=== PATIENT | female | born 1975 | race Caucasian/White ===

== ENCOUNTER → 2016-12-13 | Outpatient (CLI) | payer OTHER, MEDICARE, MEDICAID ==
[~2016-12-13] MED LIST: ABILIFY20 MG PO; ALBUTEROL0.09 MG/A2 IH; ANAPROX DS550 MG PO; ATENOLOL25 MG PO; AUGMENTIN 875 M1 TAB PO; BACTRIM DS 8001 TA1 PO; BYETTA10 MCG/0.0 SC; CLARITIN10 MG PO; DIABETA5 MG PO; FLEXERIL5 MG PO; GLYBURIDE5 MG PO; IBU-8800 MG PO; IBU800 M1 PO; IMITREX25 MG PO; JANUVIA100 MG PO; KEFLEX500 MG PO; LAMICTAL25 MG PO; LATU60TA PO; LATUDA PO; LISINOPRIL10 M1 PO; LISINOPRIL10 MG PO; LURASIDONE 40 MG; MEDROL DOSEPAK4 MG PO; METFORMIN1000 MG PO; MOTRIN800 MG PO; PEN-VK500 MG PO; PERCOCET 325 MG1 TA2 PO; PHENERGAN PO; PROCARDIA10 MG PO; ROBAXIN500 MG PO; TRAMADOL HCL50 MG PO; TRAZADONE HYDR100 MG PO; ULTRAM50 MG PO; VICO75300 PO; VICODIN 5/500 505 MG PO; VICODIN ES 7501 TA1 PO; VITAMIN D2000 IU PO; ZITHROMAX Z PA250 MG PO; ZITHROMAX250 MG PO; ZOCOR20 MG PO; Zofran4 MG PO; [UNRECOGNIZED DRUG - OTHER] PO
[2016-12-13 08:25] LABS: BILIRUBIN NEGATIVE (NEGATIVE); BLOOD TRACE-INTACT (NEGATIVE); CLARITY CLEAR (CLEAR); COLOR YELLOW (YELLOW); GLUCOSE 2+ (NEGATIVE); KETONE NEGATIVE (NEGATIVE); LEUKO ESTERASE NEGATIVE (NEGATIVE); NITRITE NEGATIVE (NEGATIVE); PH 5.5 (5.0-9.0); SPECIFIC GRAVITY >= 1.030 (1.005-1.030); UROBILINOGEN 0.2 E.U./dl (0.2-1.0)
[2016-12-13 09:04] LABS: ALBUMIN 3.1 gm/dl (3.1-4.5); ALKALINE PHOSPHATASE 105 U/L (45-117); BILIRUBIN, DIRECT < 0.1 mg/dL (0.0-0.2); BUN 12 mg/dl (7-24); CHLORIDE 102 mmol/L (98-107); CHOLESTEROL 173 mg/dL (<200); CREATININE 0.61 mg/dL (0.55-1.02); FREE T4 0.89 ng/dl (0.76-1.46); HDL CHOLESTEROL 38 mg/dl (40-60); LDL CHOLESTEROL 106 mg/dL (9-159); POTASSIUM 3.9 mmol/L (3.5-5.1); SGOT/AST 10 IU/L (3-35); SGPT/ALT 26 U/L (12-78); SODIUM 137 mmol/L (136-145); TOTAL PROTEIN 7.8 gm/dL (6.4-8.2); TRIGLYCERIDES 143 mg/dl (<150); VLDL CHOLESTEROL 29 mg/dL (6-40)
[2016-12-13 09:57] LABS: BACTERIA 1+
[2016-12-13 09:58] LABS: MUCOUS 1+; YEAST 1+
[2016-12-13 10:30] LABS: VITAMIN D, 25-HYDROXY 23.9 ng/mL (30-100)
== END | disposition home or self-care (01) ==
LOC: LAB 07:58
PROVIDERS: Internal Medicine
DX: E11.65 Type 2 diabetes mellitus with hyperglycemia (principal); G62.9 Polyneuropathy, unspecified; E55.9 Vitamin D deficiency, unspecified; E78.5 Hyperlipidemia, unspecified; E04.9 Nontoxic goiter, unspecified

== ENCOUNTER → 2017-01-02 | Outpatient (CLI) | payer OTHER, MEDICARE, MEDICAID ==
[2017-01-02 09:53] LABS: ALKALINE PHOSPHATASE 97 U/L (45-117); BILIRUBIN, DIRECT 0.1 mg/dL (0.0-0.2); BUN 11 mg/dl (7-24); CHLORIDE 102 mmol/L (98-107); CHOLESTEROL 178 mg/dL (<200); FREE T4 0.95 ng/dl (0.76-1.46); HDL CHOLESTEROL 46 mg/dl (40-60); LDL CHOLESTEROL 102 mg/dL (9-159); SGOT/AST 9 IU/L (3-35); SGPT/ALT 25 U/L (12-78); SODIUM 137 mmol/L (136-145); TOTAL PROTEIN 7.6 gm/dL (6.4-8.2); TRIGLYCERIDES 148 mg/dl (<150); VLDL CHOLESTEROL 30 mg/dL (6-40)
[2017-01-02 09:58] LABS: THYROID STIM HORMONE (HS) 0.988 uIU/ml (0.358-4.75)
[2017-01-02 10:12] LABS: VITAMIN D, 25-HYDROXY 20.1 ng/mL (30-100)
[2017-01-02 13:36] LABS: BILIRUBIN NEGATIVE (NEGATIVE); BLOOD NEGATIVE (NEGATIVE); CLARITY CLEAR (CLEAR); COLOR YELLOW (YELLOW); GLUCOSE 3+ (NEGATIVE); KETONE NEGATIVE (NEGATIVE); LEUKO ESTERASE NEGATIVE (NEGATIVE); NITRITE NEGATIVE (NEGATIVE); PH 5.5 (5.0-9.0); SPECIFIC GRAVITY 1.015 (1.005-1.030); UROBILINOGEN 0.2 E.U./dl (0.2-1.0)
[2017-01-02 13:54] LABS: BACTERIA 1+; WBC 0-2 wbc/hpf (0-5)
== END | disposition home or self-care (01) ==
LOC: LAB 08:46
PROVIDERS: Internal Medicine
DX: E11.65 Type 2 diabetes mellitus with hyperglycemia (principal); E55.9 Vitamin D deficiency, unspecified; E04.9 Nontoxic goiter, unspecified; E78.5 Hyperlipidemia, unspecified; G62.9 Polyneuropathy, unspecified

== ENCOUNTER → 2017-02-07 | Outpatient (CLI) | payer OTHER, MEDICARE, MEDICAID | END | disposition home or self-care (01) | LOC: MRI 12:24 | DX: M48.061 Spinal stenosis, lumbar region without neurogenic claudication (principal); M47.896 Other spondylosis, lumbar region ==

== ENCOUNTER → 2017-05-07 | Outpatient (CLI) | payer OTHER, MEDICARE, MEDICAID ==
[2017-05-07 08:17] LABS: BILIRUBIN NEGATIVE (NEGATIVE); BLOOD NEGATIVE (NEGATIVE); CLARITY CLEAR (CLEAR); COLOR YELLOW (YELLOW); GLUCOSE 3+ (NEGATIVE); KETONE NEGATIVE (NEGATIVE); LEUKO ESTERASE NEGATIVE (NEGATIVE); NITRITE NEGATIVE (NEGATIVE); SPECIFIC GRAVITY 1.025 (1.005-1.030); UROBILINOGEN 0.2 E.U./dl (0.2-1.0)
[2017-05-07 08:41] LABS: ALBUMIN 3.1 gm/dl (3.1-4.5); ALKALINE PHOSPHATASE 76 U/L (45-117); BILIRUBIN, DIRECT < 0.1 mg/dL (0.0-0.2); BUN 16 mg/dl (7-24); CHLORIDE 103 mmol/L (98-107); CHOLESTEROL 162 mg/dL (<200); HDL CHOLESTEROL 37 mg/dl (40-60); LDL CHOLESTEROL 76 mg/dL (9-159); POTASSIUM 3.9 mmol/L (3.5-5.1); SGOT/AST 12 IU/L (3-35); SGPT/ALT 27 U/L (12-78); SODIUM 142 mmol/L (136-145); TOTAL PROTEIN 7.3 gm/dL (6.4-8.2); TRIGLYCERIDES 245 mg/dl (<150); VLDL CHOLESTEROL 49 mg/dL (6-40)
[2017-05-07 08:46] LABS: BACTERIA 2+; MUCOUS 2+; YEAST 2+
== END | disposition home or self-care (01) ==
LOC: LAB 07:55
PROVIDERS: Internal Medicine
DX: E11.65 Type 2 diabetes mellitus with hyperglycemia (principal); E78.5 Hyperlipidemia, unspecified; E55.9 Vitamin D deficiency, unspecified

== ENCOUNTER 2017-08-05 17:25 | Inpatient (IN) | payer OTHER, MEDICARE, MEDICAID ==
[~2017-08-05] VITALS: Ht 162.5 cm; Wt 116.6 kg
[2017-08-05 17:27] VITALS: BP 163/97
[2017-08-05 18:01] LABS: BASO % 0.3 % (0.0-1.0); EOS # 0.1 10*3/uL (0.0-0.4); EOS % 0.7 % (1.0-4.0); HEMATOCRIT 50.9 % (37.0-47.0); HEMOGLOBIN 17.2 g/dl (12.0-16.0); LYMPH # 1.4 10*3/uL (1.3-4.4); LYMPH % 13.7 % (27.0-41.0); MEAN CELL VOLUME 91.4 fl (81.0-99.0); MEAN CORPUSCULAR HGB 30.9 pg (27.0-31.0); MEAN CORPUSCULAR HGB CONC 33.8 g/dl (33.0-37.0); MEAN PLATELET VOLUME 9.2 fl (9.6-12.3); MONO # 0.6 10*3/uL (0.1-1.0); MONO % 5.7 % (3.0-9.0); NEUT % 78.9 % (47.0-73.0); PLATELET COUNT AUTOMATED 268 10*3/uL (130-400); RED BLOOD COUNT 5.57 10*6/uL (4.10-5.10); RED CELL DISTRI WIDTH 12.2 % (0-14.5); WHITE BLOOD COUNT 10.2 10*3/uL (4.8-10.8)
[2017-08-05 18:10] LABS: ACT PARTIAL THROMBO TIME 24.3 SECONDS (20.8-31.5)
[2017-08-05 18:18] LABS: ALBUMIN 3.1 gm/dl (3.1-4.5); ALKALINE PHOSPHATASE 84 U/L (45-117); BUN 18 mg/dl (7-24); CHLORIDE 103 mmol/L (98-107); CREATININE 0.75 mg/dL (0.55-1.02); POTASSIUM 3.5 mmol/L (3.5-5.1); SGOT/AST 11 IU/L (3-35); SGPT/ALT 23 U/L (12-78); SODIUM 135 mmol/L (136-145); TOTAL PROTEIN 7.6 gm/dL (6.4-8.2)
[2017-08-05 18:23] LABS: TROPONIN I < 0.015 ng/ml (<0.045)
[2017-08-05 18:30] VITALS: BP 160/95
[2017-08-05 19:34] LABS: BILIRUBIN NEGATIVE (NEGATIVE); BLOOD NEGATIVE (NEGATIVE); CLARITY SL CLOUDY (CLEAR); COLOR YELLOW (YELLOW); GLUCOSE 2+ (NEGATIVE); KETONE TRACE (NEGATIVE); LEUKO ESTERASE NEGATIVE (NEGATIVE); NITRITE NEGATIVE (NEGATIVE); PH 5.5 (5.0-9.0); SPECIFIC GRAVITY >= 1.030 (1.005-1.030); UROBILINOGEN 0.2 E.U./dl (0.2-1.0)
[2017-08-05 19:44] VITALS: BP 134/85
[2017-08-05 19:48] LABS: BACTERIA 1+; MUCOUS 1+; YEAST 1+
[2017-08-05 19:49] LABS: EPITHELIAL CELLS 21-30
[2017-08-05 21:21] VITALS: BP 129/69
[2017-08-05] MEDS ORDERED: METOPROLOL SUCC50 M2 PO (21:46)
[2017-08-05] MEDS ORDERED: AMLODIPINE BESY10 MG PO (21:47)
[2017-08-05] MEDS ORDERED: PRAVACHOL40 MG PO (21:47)
[2017-08-05] MEDS ORDERED: CYCLOBENZAPRINE5 M3 PO (21:48)
[2017-08-05] MEDS ORDERED: NOVOLOG100 UNIT/1 SQ (21:50)
[2017-08-05] MEDS ORDERED: ULTRAM50 MG PO (21:51)
[2017-08-05] MEDS ORDERED: TRAMADOL HCL50 MG PO (21:51)
[2017-08-05] MEDS ORDERED: CLARITIN10 MG PO (21:54)
[2017-08-05] MEDS ORDERED: PEPCID20 MG PO (21:54)
[2017-08-05] MEDS ORDERED: IBU800 M1 PO (21:55)
[2017-08-06] VITALS: BP 109/74
[2017-08-06 04:00] VITALS: BP 138/85
[2017-08-06 07:04] LABS: BASO % 0.1 % (0.0-1.0); LYMPH # 0.9 10*3/uL (1.3-4.4); LYMPH % 10.1 % (27.0-41.0); MEAN CELL VOLUME 91.5 fl (81.0-99.0); MEAN CORPUSCULAR HGB 30.6 pg (27.0-31.0); MEAN CORPUSCULAR HGB CONC 33.5 g/dl (33.0-37.0); MEAN PLATELET VOLUME 9.4 fl (9.6-12.3); MONO # 0.2 10*3/uL (0.1-1.0); MONO % 1.8 % (3.0-9.0); NEUT % 87.3 % (47.0-73.0); PLATELET COUNT AUTOMATED 253 10*3/uL (130-400); RED CELL DISTRI WIDTH 11.9 % (0-14.5); WHITE BLOOD COUNT 9.2 10*3/uL (4.8-10.8)
[2017-08-06 07:07] LABS: HEMOGLOBIN 14.4 g/dl (12.0-16.0)
[2017-08-06 07:35] LABS: ALBUMIN 2.7 gm/dl (3.1-4.5); BUN 13 mg/dl (7-24); CHLORIDE 105 mmol/L (98-107); CHOLESTEROL 132 mg/dL (<200); CREATININE 0.52 mg/dL (0.55-1.02); PHOSPHOROUS 3.2 mg/dL (2.5-4.9); POTASSIUM 3.9 mmol/L (3.5-5.1); SGOT/AST 9 IU/L (3-35); SGPT/ALT 18 U/L (12-78); SODIUM 139 mmol/L (136-145); TRIGLYCERIDES 90 mg/dl (<150); VLDL CHOLESTEROL 18 mg/dL (6-40)
[2017-08-06 07:42] LABS: ALKALINE PHOSPHATASE 69 U/L (45-117); FREE T4 1.14 ng/dl (0.76-1.46); HDL CHOLESTEROL 35 mg/dl (40-60); LDL CHOLESTEROL 79 mg/dL (9-159); THYROID STIM HORMONE (HS) 0.265 uIU/ml (0.358-4.75); TOTAL PROTEIN 6.5 gm/dL (6.4-8.2)
[2017-08-06 08:00] VITALS: BP 147/90
[2017-08-06 08:07] LABS: VITAMIN D, 25-HYDROXY 32.7 ng/mL (30-100)
[2017-08-06] MEDS ORDERED: NOVOLOG FL100 UNIT/1 SQ (09:32)
[2017-08-06] MEDS ORDERED: VITAMIN D5000 UNI1 PO (09:33)
[2017-08-06] MEDS ORDERED: DELTASONE20 M1 PO (09:34)
[2017-08-06] MEDS ORDERED: TRESIBA FL100 UNIT/1 SQ (09:35)
[2017-08-06] MEDS ORDERED: JARDIANCE25 MG PO (09:35)
[2017-08-06 12:00] VITALS: BP 128/72
[2017-08-06 16:00] VITALS: BP 149/71
[2017-08-06 20:00] VITALS: BP 116/68
[2017-08-07] VITALS: BP 139/89
[2017-08-07 05:41] LABS: BUN 15 mg/dl (7-24); CHLORIDE 105 mmol/L (98-107); CREATININE 0.53 mg/dL (0.55-1.02); POTASSIUM 4.3 mmol/L (3.5-5.1); SODIUM 137 mmol/L (136-145)
[2017-08-07 06:50] LABS: BASO % 0.1 % (0.0-1.0); HEMATOCRIT 41.6 % (37.0-47.0); HEMOGLOBIN 14.1 g/dl (12.0-16.0); LYMPH # 1.4 10*3/uL (1.3-4.4); LYMPH % 9.8 % (27.0-41.0); MEAN CELL VOLUME 91.4 fl (81.0-99.0); MEAN CORPUSCULAR HGB CONC 33.9 g/dl (33.0-37.0); MEAN PLATELET VOLUME 9.6 fl (9.6-12.3); MONO # 0.7 10*3/uL (0.1-1.0); MONO % 4.6 % (3.0-9.0); NEUT # 12.1 10*3/uL (2.3-7.9); NEUT % 84.7 % (47.0-73.0); PLATELET COUNT AUTOMATED 255 10*3/uL (130-400); RED BLOOD COUNT 4.55 10*6/uL (4.10-5.10); RED CELL DISTRI WIDTH 12.1 % (0-14.5); WHITE BLOOD COUNT 14.2 10*3/uL (4.8-10.8)
[2017-08-07 09:16] VITALS: BP 134/85
[2017-08-07] MEDS ORDERED: DUONEB 3 MG/3 ML3 M1 NEB (10:44)
[2017-08-07] MEDS ORDERED: MUCINEX ER600 MG PO (10:44)
[2017-08-07] MEDS ORDERED: DOXYCYCLINE100 M3 PO (10:45)
[2017-08-07] MEDS ORDERED: PREDNISONE10 MG PO (10:45)
== END 2017-08-07 12:59 | disposition home or self-care (01) | DRG 871 ==
LOC: ED 17:25 → 4E 20:12 → EDHOLD 20:12 → 4E 20:26
PROVIDERS: Family Medicine; Internal Medicine Hospice and Palliative Medicine; Nurse Practitioner Family
DX: A41.9 Sepsis, unspecified organism (principal); J18.9 Pneumonia, unspecified organism; D75.1 Secondary polycythemia; E83.51 Hypocalcemia; E11.65 Type 2 diabetes mellitus with hyperglycemia; E87.1 Hypo-osmolality and hyponatremia; I10 Essential (primary) hypertension; F31.9 Bipolar disorder, unspecified; E55.9 Vitamin D deficiency, unspecified; E78.1 Pure hyperglyceridemia; Z72.0 Tobacco use; Z88.8 Allergy status to other drugs, medicaments and biological substances; Z91.040 Latex allergy status; Z90.710 Acquired absence of both cervix and uterus

== ENCOUNTER → 2017-09-07 | Outpatient (CLI) | payer OTHER, MEDICARE, MEDICAID ==
[~2017-09-07] MED LIST changes: +AMLODIPINE BESY10 MG PO; +CYCLOBENZAPRINE5 M3 PO; +DELTASONE20 M1 PO; +DOXYCYCLINE100 M3 PO; +DUONEB 3 MG/3 ML3 M1 NEB; +JARDIANCE25 MG PO; +METOPROLOL SUCC50 M2 PO; +MUCINEX ER600 MG PO; +NOVOLOG FL100 UNIT/1 SQ; +NOVOLOG100 UNIT/1 SQ; +PEPCID20 MG PO; +PRAVACHOL40 MG PO; +PREDNISONE10 MG PO; +TRESIBA FL100 UNIT/1 SQ; +VITAMIN D5000 UNI1 PO
[2017-09-07 09:30] LABS: BILIRUBIN NEGATIVE (NEGATIVE); BLOOD NEGATIVE (NEGATIVE); CLARITY CLOUDY (CLEAR); COLOR YELLOW (YELLOW); GLUCOSE 3+ (NEGATIVE); KETONE TRACE (NEGATIVE); LEUKO ESTERASE NEGATIVE (NEGATIVE); NITRITE NEGATIVE (NEGATIVE); PH 5.5 (5.0-9.0); SPECIFIC GRAVITY >= 1.030 (1.005-1.030); UROBILINOGEN 0.2 E.U./dl (0.2-1.0)
[2017-09-07 09:56] LABS: ALBUMIN 3.3 gm/dl (3.1-4.5); ALKALINE PHOSPHATASE 98 U/L (45-117); BACTERIA 1+; BILIRUBIN, DIRECT < 0.1 mg/dL (0.0-0.2); BUN 14 mg/dl (7-24); CHLORIDE 107 mmol/L (98-107); CHOLESTEROL 143 mg/dL (<200); CREATININE 0.69 mg/dL (0.55-1.02); EPITHELIAL CELLS 15-20; FREE T4 0.99 ng/dl (0.76-1.46); HDL CHOLESTEROL 36 mg/dl (40-60); LDL CHOLESTEROL 72 mg/dL (9-159); MUCOUS 1+; POTASSIUM 3.8 mmol/L (3.5-5.1); SGOT/AST 12 IU/L (3-35); SGPT/ALT 24 U/L (12-78); SODIUM 140 mmol/L (136-145); TOTAL PROTEIN 7.4 gm/dL (6.4-8.2); TRIGLYCERIDES 174 mg/dl (<150); VLDL CHOLESTEROL 35 mg/dL (6-40); YEAST 2+
[2017-09-07 10:01] LABS: THYROID STIM HORMONE (HS) 0.696 uIU/ml (0.358-4.75)
== END | disposition home or self-care (01) ==
LOC: LAB 08:22
PROVIDERS: Internal Medicine
DX: E11.65 Type 2 diabetes mellitus with hyperglycemia (principal); E78.5 Hyperlipidemia, unspecified; E04.9 Nontoxic goiter, unspecified; E55.9 Vitamin D deficiency, unspecified

== ENCOUNTER → 2017-12-18 | Outpatient (CLI) | payer OTHER, MEDICARE, MEDICAID | END | disposition home or self-care (01) | LOC: MAMMO 06:54 | DX: Z12.31 Encounter for screening mammogram for malignant neoplasm of breast (principal); R92.8 Other abnormal and inconclusive findings on diagnostic imaging of breast ==

== ENCOUNTER → 2018-01-30 | Outpatient (CLI) | payer OTHER, MEDICARE, MEDICAID ==
[2018-01-30 11:19] LABS: BILIRUBIN NEGATIVE (NEGATIVE); BLOOD NEGATIVE (NEGATIVE); CLARITY SL CLOUDY (CLEAR); COLOR YELLOW (YELLOW); GLUCOSE 3+ (NEGATIVE); KETONE NEGATIVE (NEGATIVE); LEUKO ESTERASE NEGATIVE (NEGATIVE); NITRITE NEGATIVE (NEGATIVE); SPECIFIC GRAVITY <= 1.005 (1.005-1.030); UROBILINOGEN 0.2 E.U./dl (0.2-1.0)
[2018-01-30 11:37] LABS: BACTERIA 2+; WBC 0-2 wbc/hpf (0-5); YEAST 1+
[2018-01-30 11:40] LABS: BASO % 0.4 % (0.0-1.0); EOS # 0.1 10*3/uL (0.0-0.4); EOS % 1.3 % (1.0-4.0); HEMATOCRIT 45.3 % (37.0-47.0); HEMOGLOBIN 15.4 g/dl (12.0-16.0); LYMPH # 2.2 10*3/uL (1.3-4.4); LYMPH % 22.9 % (27.0-41.0); MEAN CELL VOLUME 90.2 fl (81.0-99.0); MEAN CORPUSCULAR HGB 30.7 pg (27.0-31.0); MEAN PLATELET VOLUME 9.5 fl (9.6-12.3); MONO # 0.5 10*3/uL (0.1-1.0); MONO % 5.1 % (3.0-9.0); NEUT # 6.8 10*3/uL (2.3-7.9); NEUT % 69.9 % (47.0-73.0); PLATELET COUNT AUTOMATED 283 10*3/uL (130-400); RED BLOOD COUNT 5.02 10*6/uL (4.10-5.10); RED CELL DISTRI WIDTH 12.4 % (0-14.5); WHITE BLOOD COUNT 9.8 10*3/uL (4.8-10.8)
[2018-01-30 11:44] LABS: INTERNATIONAL NORM RATIO 0.9 (2.0-3.5)
[2018-01-30 11:45] LABS: BUN 8 mg/dl (7-24); CHLORIDE 102 mmol/L (98-107); CREATININE 0.74 mg/dL (0.55-1.02); POTASSIUM 3.9 mmol/L (3.5-5.1); SODIUM 136 mmol/L (136-145)
== END | disposition home or self-care (01) ==
LOC: LAB 10:52
PROVIDERS: Physician Assistant
DX: Z01.818 Encounter for other preprocedural examination (principal)

== ENCOUNTER → 2018-02-12 | Outpatient (CLI) | payer OTHER, MEDICARE, MEDICAID ==
[2018-02-12 17:10] LABS: BASO % 0.3 % (0.0-1.0); EOS # 0.1 10*3/uL (0.0-0.4); EOS % 0.7 % (1.0-4.0); HEMATOCRIT 42.3 % (37.0-47.0); HEMOGLOBIN 14.6 g/dl (12.0-16.0); LYMPH # 2.3 10*3/uL (1.3-4.4); LYMPH % 19.9 % (27.0-41.0); MEAN CELL VOLUME 90.4 fl (81.0-99.0); MEAN CORPUSCULAR HGB 31.2 pg (27.0-31.0); MEAN CORPUSCULAR HGB CONC 34.5 g/dl (33.0-37.0); MEAN PLATELET VOLUME 9.5 fl (9.6-12.3); MONO # 0.5 10*3/uL (0.1-1.0); MONO % 4.5 % (3.0-9.0); NEUT # 8.7 10*3/uL (2.3-7.9); NEUT % 74.3 % (47.0-73.0); PLATELET COUNT AUTOMATED 249 10*3/uL (130-400); RED BLOOD COUNT 4.68 10*6/uL (4.10-5.10); RED CELL DISTRI WIDTH 12.6 % (0-14.5); WHITE BLOOD COUNT 11.8 10*3/uL (4.8-10.8)
[2018-02-12 17:19] LABS: ACT PARTIAL THROMBO TIME 26.7 SECONDS (20.8-31.5); INTERNATIONAL NORM RATIO 0.9 (2.0-3.5)
== END | disposition home or self-care (01) ==
LOC: LAB 16:27
PROVIDERS: Anesthesiology Addiction Medicine
DX: M79.606 Pain in leg, unspecified (principal); M79.609 Pain in unspecified limb

== ENCOUNTER → 2018-04-24 | Outpatient (CLI) | payer OTHER, MEDICARE ==
[2018-04-24 10:11] LABS: BILIRUBIN NEGATIVE (NEGATIVE); BLOOD NEGATIVE (NEGATIVE); CLARITY SL CLOUDY (CLEAR); COLOR YELLOW (YELLOW); GLUCOSE 2+ (NEGATIVE); KETONE NEGATIVE (NEGATIVE); LEUKO ESTERASE NEGATIVE (NEGATIVE); NITRITE NEGATIVE (NEGATIVE); PH 5.5 (5.0-9.0); SPECIFIC GRAVITY 1.025 (1.005-1.030); UROBILINOGEN 0.2 E.U./dl (0.2-1.0)
[2018-04-24 10:42] LABS: ALBUMIN 3.4 gm/dl (3.1-4.5); ALKALINE PHOSPHATASE 88 U/L (45-117); BILIRUBIN, DIRECT < 0.1 mg/dL (0.0-0.2); BUN 17 mg/dl (7-24); CHLORIDE 109 mmol/L (98-107); CREATININE 0.69 mg/dL (0.55-1.02); SGOT/AST 11 IU/L (3-35); SGPT/ALT 28 U/L (12-78); SODIUM 141 mmol/L (136-145); TOTAL PROTEIN 7.9 gm/dL (6.4-8.2)
== END | disposition home or self-care (01) ==
LOC: LAB 09:50
PROVIDERS: Internal Medicine
DX: E04.9 Nontoxic goiter, unspecified (principal); E78.5 Hyperlipidemia, unspecified; E11.65 Type 2 diabetes mellitus with hyperglycemia; E55.9 Vitamin D deficiency, unspecified

== ENCOUNTER → 2018-08-15 | Outpatient (CLI) | payer OTHER, MEDICARE ==
[2018-08-15 06:21] LABS: ALBUMIN 3.4 gm/dl (3.1-4.5); ALKALINE PHOSPHATASE 91 U/L (45-117); BILIRUBIN, DIRECT < 0.1 mg/dL (0.0-0.2); BUN 13 mg/dl (7-24); CHLORIDE 106 mmol/L (98-107); CHOLESTEROL 169 mg/dL (<200); FREE T4 0.98 ng/dl (0.76-1.46); HDL CHOLESTEROL 41 mg/dl (40-60); LDL CHOLESTEROL 100 mg/dL (9-159); POTASSIUM 3.8 mmol/L (3.5-5.1); SGOT/AST 12 IU/L (3-35); SGPT/ALT 28 U/L (12-78); SODIUM 142 mmol/L (136-145); TOTAL PROTEIN 7.6 gm/dL (6.4-8.2); TRIGLYCERIDES 139 mg/dl (<150); VLDL CHOLESTEROL 28 mg/dL (6-40)
[2018-08-15 06:23] LABS: BILIRUBIN NEGATIVE (NEGATIVE); BLOOD NEGATIVE (NEGATIVE); CLARITY SL CLOUDY (CLEAR); COLOR YELLOW (YELLOW); GLUCOSE 3+ (NEGATIVE); KETONE NEGATIVE (NEGATIVE); LEUKO ESTERASE NEGATIVE (NEGATIVE); NITRITE NEGATIVE (NEGATIVE); SPECIFIC GRAVITY >= 1.030 (1.005-1.030); UROBILINOGEN 0.2 E.U./dl (0.2-1.0)
[2018-08-15 06:26] LABS: THYROID STIM HORMONE (HS) 0.404 uIU/ml (0.358-4.75)
[2018-08-15 12:15] LABS: VITAMIN D, 25-HYDROXY 61.3 ng/mL (30-100)
== END | disposition home or self-care (01) ==
LOC: LAB 05:14
PROVIDERS: Internal Medicine
DX: E04.9 Nontoxic goiter, unspecified (principal); E78.5 Hyperlipidemia, unspecified; E55.9 Vitamin D deficiency, unspecified; E11.65 Type 2 diabetes mellitus with hyperglycemia; G62.9 Polyneuropathy, unspecified

== ENCOUNTER → 2018-10-30 | Outpatient (CLI) | payer MEDICARE | END | disposition home or self-care (01) | LOC: RAD 09:55 | DX: M17.0 Bilateral primary osteoarthritis of knee (principal) ==

== ENCOUNTER → 2018-12-03 | Outpatient (CLI) | payer MEDICARE | END | disposition home or self-care (01) | LOC: MRI 14:19 | DX: M47.816 Spondylosis without myelopathy or radiculopathy, lumbar region (principal); M54.16 Radiculopathy, lumbar region; I10 Essential (primary) hypertension; E11.9 Type 2 diabetes mellitus without complications; M12.88 Other specific arthropathies, not elsewhere classified, other specified site; M51.26 Other intervertebral disc displacement, lumbar region ==

== ENCOUNTER → 2018-12-05 | Outpatient (CLI) | payer MEDICARE | END | disposition home or self-care (01) | LOC: MRI 00:31 | DX: M47.894 Other spondylosis, thoracic region (principal); M51.24 Other intervertebral disc displacement, thoracic region; E11.9 Type 2 diabetes mellitus without complications; I10 Essential (primary) hypertension; M54.2 Cervicalgia ==

== ENCOUNTER → 2018-12-20 | Outpatient (CLI) | payer OTHER, MEDICARE ==
[2018-12-20 00:53] LABS: BILIRUBIN NEGATIVE (NEGATIVE); BLOOD NEGATIVE (NEGATIVE); CLARITY CLEAR (CLEAR); COLOR STRAW (YELLOW); GLUCOSE 3+ (NEGATIVE); KETONE NEGATIVE (NEGATIVE); LEUKO ESTERASE NEGATIVE (NEGATIVE); NITRITE NEGATIVE (NEGATIVE); PH 5.5 (5.0-9.0); SPECIFIC GRAVITY <= 1.005 (1.005-1.030); UROBILINOGEN 0.2 E.U./dl (0.2-1.0)
[2018-12-20 01:06] LABS: ALBUMIN 3.5 gm/dl (3.1-4.5); ALKALINE PHOSPHATASE 99 U/L (45-117); BILIRUBIN, DIRECT < 0.1 mg/dL (0.0-0.2); CHOLESTEROL 173 mg/dL (<200); FREE T4 0.96 ng/dl (0.76-1.46); HDL CHOLESTEROL 40 mg/dl (40-60); LDL CHOLESTEROL 94 mg/dL (9-159); SGOT/AST 10 IU/L (3-35); SGPT/ALT 27 U/L (12-78); TOTAL PROTEIN 7.8 gm/dL (6.4-8.2); TRIGLYCERIDES 195 mg/dl (<150); VLDL CHOLESTEROL 39 mg/dL (6-40)
[2018-12-20 02:16] LABS: VITAMIN D, 25-HYDROXY 41.6 ng/mL (30-100)
[2018-12-20 06:43] LABS: BUN 15 mg/dl (7-24); CHLORIDE 105 mmol/L (98-107); CREATININE 0.73 mg/dL (0.55-1.02); POTASSIUM 3.8 mmol/L (3.5-5.1); SODIUM 138 mmol/L (136-145)
== END | disposition home or self-care (01) ==
LOC: LAB 00:16
PROVIDERS: Internal Medicine
DX: E78.5 Hyperlipidemia, unspecified (principal); E11.65 Type 2 diabetes mellitus with hyperglycemia; E55.9 Vitamin D deficiency, unspecified; E04.9 Nontoxic goiter, unspecified; G62.9 Polyneuropathy, unspecified

== ENCOUNTER → 2019-04-15 | Outpatient (CLI) | payer OTHER, MEDICARE ==
[2019-04-15 03:20] LABS: BILIRUBIN NEGATIVE (NEGATIVE); BLOOD NEGATIVE (NEGATIVE); CLARITY SL CLOUDY (CLEAR); COLOR YELLOW (YELLOW); GLUCOSE 3+ (NEGATIVE); KETONE NEGATIVE (NEGATIVE); LEUKO ESTERASE NEGATIVE (NEGATIVE); NITRITE NEGATIVE (NEGATIVE); SPECIFIC GRAVITY >= 1.030 (1.005-1.030); UROBILINOGEN 0.2 E.U./dl (0.2-1.0)
[2019-04-15 03:39] LABS: ALBUMIN 3.4 gm/dl (3.1-4.5); ALKALINE PHOSPHATASE 93 U/L (45-117); BILIRUBIN, DIRECT 0.1 mg/dL (0.0-0.2); BUN 14 mg/dl (7-24); CHLORIDE 110 mmol/L (98-107); CHOLESTEROL 137 mg/dL (<200); CREATININE 0.65 mg/dL (0.55-1.02); HDL CHOLESTEROL 38 mg/dl (40-60); LDL CHOLESTEROL 66 mg/dL (9-159); POTASSIUM 3.1 mmol/L (3.5-5.1); SGOT/AST 12 IU/L (3-35); SGPT/ALT 34 U/L (12-78); SODIUM 142 mmol/L (136-145); TOTAL PROTEIN 7.4 gm/dL (6.4-8.2); TRIGLYCERIDES 165 mg/dl (<150); VLDL CHOLESTEROL 33 mg/dL (6-40)
[2019-04-15 03:41] LABS: FREE T4 0.99 ng/dl (0.76-1.46)
[2019-04-15 03:46] LABS: THYROID STIM HORMONE (HS) 0.577 uIU/ml (0.358-4.75)
[2019-04-15 06:35] LABS: VITAMIN D, 25-HYDROXY 62.2 ng/mL (30-100)
== END | disposition home or self-care (01) ==
LOC: LAB 02:52
PROVIDERS: Internal Medicine
DX: E78.5 Hyperlipidemia, unspecified (principal); E11.65 Type 2 diabetes mellitus with hyperglycemia; G62.9 Polyneuropathy, unspecified; E04.9 Nontoxic goiter, unspecified

== ENCOUNTER → 2019-05-06 | Outpatient (CLI) | payer OTHER, MEDICARE ==
[2019-05-06 02:26] LABS: BASO % 0.3 % (0.0-1.0); EOS # 0.1 10*3/uL (0.0-0.4); EOS % 0.9 % (1.0-4.0); HEMATOCRIT 43.6 % (37.0-47.0); HEMOGLOBIN 14.7 g/dl (12.0-16.0); LYMPH # 2.6 10*3/uL (1.3-4.4); LYMPH % 22.7 % (27.0-41.0); MEAN CELL VOLUME 91.8 fl (81.0-99.0); MEAN CORPUSCULAR HGB 30.9 pg (27.0-31.0); MEAN CORPUSCULAR HGB CONC 33.7 g/dl (33.0-37.0); MEAN PLATELET VOLUME 9.4 fl (9.6-12.3); MONO # 0.7 10*3/uL (0.1-1.0); MONO % 6.6 % (3.0-9.0); NEUT # 7.8 10*3/uL (2.3-7.9); NEUT % 69.1 % (47.0-73.0); PLATELET COUNT AUTOMATED 247 10*3/uL (130-400); RED BLOOD COUNT 4.75 10*6/uL (4.10-5.10); RED CELL DISTRI WIDTH 12.2 % (0-14.5); WHITE BLOOD COUNT 11.3 10*3/uL (4.8-10.8)
[2019-05-06 02:48] LABS: BUN 16 mg/dl (7-24); CHLORIDE 111 mmol/L (98-107); CREATININE 0.63 mg/dL (0.55-1.02); POTASSIUM 3.5 mmol/L (3.5-5.1); SODIUM 142 mmol/L (136-145)
[2019-05-06 02:54] LABS: ACT PARTIAL THROMBO TIME 28.3 SECONDS (20.0-32.1); INTERNATIONAL NORM RATIO 0.9 (2.0-3.5)
[2019-05-06 02:55] LABS: BILIRUBIN NEGATIVE (NEGATIVE); BLOOD TRACE-INTACT (NEGATIVE); CLARITY CLEAR (CLEAR); COLOR YELLOW (YELLOW); GLUCOSE 3+ (NEGATIVE); KETONE NEGATIVE (NEGATIVE); LEUKO ESTERASE NEGATIVE (NEGATIVE); NITRITE NEGATIVE (NEGATIVE); UROBILINOGEN 0.2 E.U./dl (0.2-1.0)
[2019-05-06 02:56] LABS: YEAST TRACE
== END | disposition home or self-care (01) ==
LOC: LAB 01:33
PROVIDERS: Anesthesiology Addiction Medicine
DX: M79.604 Pain in right leg (principal)

== ENCOUNTER → 2020-03-11 | Outpatient (CLI) | payer MEDICARE | END | disposition home or self-care (01) | LOC: COVID19 08:26 | PROVIDERS: ATTEND Nurse Practitioner Primary Care | DX: Z20.828 Contact with and (suspected) exposure to other viral communicable diseases (principal); J44.1 Chronic obstructive pulmonary disease with (acute) exacerbation ==

== ENCOUNTER → 2020-04-14 | Outpatient (CLI) | payer OTHER | END | disposition home or self-care (01) | LOC: COVID19 10:00 | PROVIDERS: ATTEND Physician Assistant | DX: Z20.822 Contact with and (suspected) exposure to COVID-19 (principal); R69 Illness, unspecified ==

== ENCOUNTER → 2020-06-02 | Outpatient (CLI) | payer OTHER ==
[2020-06-02 05:06] LABS: BILIRUBIN Negative (Negative); BLOOD Negative (Negative); CLARITY Clear (Clear); COLOR Yellow (Yellow); GLUCOSE 3+ (Negative); KETONE Negative (Negative); LEUKO ESTERASE Negative (Negative); NITRITE Negative (Negative); PH 5.5 (4.5-8.0); SPECIFIC GRAVITY >= 1.030 (1.001-1.030)
[2020-06-02 05:23] LABS: ALBUMIN 3.1 gm/dl (3.1-4.5); ALKALINE PHOSPHATASE 108 U/L (45-117); BILIRUBIN, DIRECT < 0.1 mg/dL (0.0-0.2); BUN 17 mg/dl (7-24); CHLORIDE 106 mmol/L (98-107); CHOLESTEROL 192 mg/dL (<200); CREATININE 0.71 mg/dL (0.55-1.02); HDL CHOLESTEROL 33 mg/dl (40-60); POTASSIUM 4.1 mmol/L (3.5-5.1); SGOT/AST 13 IU/L (3-35); SGPT/ALT 43 U/L (12-78); SODIUM 137 mmol/L (136-145); TOTAL PROTEIN 7.2 gm/dL (6.4-8.2); TRIGLYCERIDES 664 mg/dl (<150)
[2020-06-02 05:24] LABS: FREE T4 0.88 ng/dl (0.76-1.46)
[2020-06-02 05:26] LABS: BACTERIA TRACE; RBC 0-2 rbc/hpf (0-2)
[2020-06-02 05:29] LABS: THYROID STIM HORMONE (HS) 0.576 uIU/ml (0.358-4.75)
[2020-06-02 08:10] LABS: VITAMIN D, 25-HYDROXY 46.8 ng/mL (30-100)
== END | disposition home or self-care (01) ==
LOC: LAB 03:29
PROVIDERS: ATTEND Internal Medicine
DX: E11.65 Type 2 diabetes mellitus with hyperglycemia (principal); E55.9 Vitamin D deficiency, unspecified; E04.9 Nontoxic goiter, unspecified; E78.5 Hyperlipidemia, unspecified; G62.9 Polyneuropathy, unspecified

== ENCOUNTER → 2020-10-22 | Outpatient (CLI) | payer OTHER ==
[2020-10-22 15:31] LABS: BILIRUBIN Negative (Negative); BLOOD Negative (Negative); CLARITY Clear (Clear); COLOR Yellow (Yellow); GLUCOSE 3+ (Negative); KETONE Negative (Negative); LEUKO ESTERASE Negative (Negative); NITRITE Negative (Negative); SPECIFIC GRAVITY >= 1.030 (1.001-1.030); UROBILINOGEN 0.2 E.U./dl (0.0-1.0)
[2020-10-22 15:44] LABS: ALBUMIN 3.1 gm/dl (3.1-4.5); ALKALINE PHOSPHATASE 95 U/L (45-117); BUN 10 mg/dl (7-24); CHLORIDE 109 mmol/L (98-107); CHOLESTEROL 165 mg/dL (<200); CREATININE 0.83 mg/dL (0.55-1.02); POTASSIUM 3.9 mmol/L (3.5-5.1); SGOT/AST 9 IU/L (3-35); SGPT/ALT 21 U/L (12-78); SODIUM 136 mmol/L (136-145); TOTAL PROTEIN 7.1 gm/dL (6.4-8.2); TRIGLYCERIDES 158 mg/dl (<150)
[2020-10-22 15:50] LABS: FREE T4 1.09 ng/dl (0.76-1.46); LDL CHOLESTEROL 99 mg/dL (9-159); THYROID STIM HORMONE (HS) 0.295 uIU/ml (0.358-4.75)
[2020-10-22 15:53] LABS: RBC 0-2 rbc/hpf (0-2); WBC 0-2 wbc/hpf (0-5); YEAST TRACE
[2020-10-22 16:05] LABS: VITAMIN D, 25-HYDROXY 43.5 ng/mL (30-100)
== END | disposition home or self-care (01) ==
LOC: LAB 15:05
PROVIDERS: ATTEND Internal Medicine
DX: E11.65 Type 2 diabetes mellitus with hyperglycemia (principal); E78.5 Hyperlipidemia, unspecified; E55.9 Vitamin D deficiency, unspecified; E04.9 Nontoxic goiter, unspecified; G62.9 Polyneuropathy, unspecified

== ENCOUNTER 2020-11-30 13:55 | Emergency (ER) | payer OTHER ==
[2020-11-30 14:12] VITALS: BP 121/78
[2020-11-30 14:29] LABS: BASO % 0.5 % (0.0-1.0); EOS # 0.2 10*3/uL (0.0-0.4); HEMATOCRIT 41.1 % (37.0-47.0); LYMPH # 2.7 10*3/uL (1.3-4.4); MEAN CELL VOLUME 90.3 fl (81.0-99.0); MEAN CORPUSCULAR HGB 30.8 pg (27.0-31.0); MEAN CORPUSCULAR HGB CONC 34.1 g/dl (33.0-37.0); MEAN PLATELET VOLUME 9.3 fl (9.6-12.3); MONO # 0.5 10*3/uL (0.1-1.0); MONO % 6.6 % (3.0-9.0); NEUT # 4.4 10*3/uL (2.3-7.9); NEUT % 56.4 % (47.0-73.0); PLATELET COUNT AUTOMATED 271 10*3/uL (130-400); RED BLOOD COUNT 4.55 10*6/uL (4.10-5.10); RED CELL DISTRI WIDTH 11.9 % (0-14.5); WHITE BLOOD COUNT 7.9 10*3/uL (4.8-10.8)
[2020-11-30 14:45] LABS: ALBUMIN 3.1 gm/dl (3.1-4.5); ALKALINE PHOSPHATASE 93 U/L (45-117); BUN 10 mg/dl (7-24); CHLORIDE 103 mmol/L (98-107); CREATININE 0.85 mg/dL (0.55-1.02); POTASSIUM 3.9 mmol/L (3.5-5.1); SGOT/AST 8 IU/L (3-35); SGPT/ALT 28 U/L (12-78); SODIUM 135 mmol/L (136-145); TOTAL PROTEIN 7.2 gm/dL (6.4-8.2)
[2020-11-30 14:50] LABS: TROPONIN I < 0.015 ng/ml (<0.045)
== END 2020-11-30 15:49 | disposition home or self-care (01) ==
LOC: ED 13:55
PROVIDERS: Emergency Medicine
DX: R07.89 Other chest pain (principal); F17.200 Nicotine dependence, unspecified, uncomplicated; Z98.51 Tubal ligation status; Z90.710 Acquired absence of both cervix and uterus; Z79.899 Other long term (current) drug therapy; Z79.4 Long term (current) use of insulin; Z88.5 Allergy status to narcotic agent; Z88.8 Allergy status to other drugs, medicaments and biological substances; Z91.040 Latex allergy status

== ENCOUNTER → 2021-01-22 | Outpatient (CLI) | payer OTHER ==
[2021-01-22 18:42] LABS: ALBUMIN 3.2 gm/dl (3.1-4.5); ALKALINE PHOSPHATASE 67 U/L (45-117); BUN 13 mg/dl (7-24); CHLORIDE 107 mmol/L (98-107); CREATININE 0.78 mg/dL (0.55-1.02); POTASSIUM 4.3 mmol/L (3.5-5.1); SGOT/AST 12 IU/L (3-35); SGPT/ALT 20 U/L (12-78); SODIUM 138 mmol/L (136-145); TOTAL PROTEIN 7.3 gm/dL (6.4-8.2)
== END | disposition home or self-care (01) ==
LOC: LAB 17:58
PROVIDERS: ATTEND Registered Nurse Psychiatric/Mental Health
DX: F31.81 Bipolar II disorder (principal)

== ENCOUNTER → 2021-02-21 | Outpatient (CLI) | payer OTHER | END | disposition home or self-care (01) | LOC: LAB 08:50 | PROVIDERS: ATTEND Registered Nurse Psychiatric/Mental Health | DX: F31.9 Bipolar disorder, unspecified (principal) ==

== ENCOUNTER → 2021-08-18 | Outpatient (CLI) | payer OTHER | END | disposition home or self-care (01) | LOC: LAB 12:35 | PROVIDERS: ATTEND Registered Nurse Psychiatric/Mental Health | DX: F31.32 Bipolar disorder, current episode depressed, moderate (principal) ==

== ENCOUNTER → 2022-01-19 | Outpatient (CLI) | payer OTHER ==
[2022-01-19 07:56] LABS: BILIRUBIN Negative (Negative); BLOOD Negative (Negative); CLARITY Clear (Clear); COLOR Yellow (Yellow); GLUCOSE 3+ (Negative); KETONE Trace (Negative); LEUKO ESTERASE Negative (Negative); NITRITE Negative (Negative); PH 6.5 (4.5-8.0); SPECIFIC GRAVITY >= 1.030 (1.001-1.030); UROBILINOGEN 0.2 E.U./dl (0.0-1.0)
[2022-01-19 08:15] LABS: BUN 11 mg/dl (7-24); CHLORIDE 106 mmol/L (98-107); CHOLESTEROL 179 mg/dL (<200); POTASSIUM 4.1 mmol/L (3.5-5.1); SGOT/AST 6 IU/L (3-35); SGPT/ALT 21 U/L (12-78); SODIUM 137 mmol/L (136-145); TOTAL PROTEIN 6.9 gm/dL (6.4-8.2); TRIGLYCERIDES 316 mg/dl (<150)
[2022-01-19 08:20] LABS: ALKALINE PHOSPHATASE 80 U/L (45-117); FREE T4 0.96 ng/dl (0.76-1.46); LDL CHOLESTEROL 88 mg/dL (9-159)
[2022-01-19 09:30] LABS: VITAMIN D, 25-HYDROXY 55.5 ng/mL (30-100)
[2022-01-19 09:36] LABS: BACTERIA 1+
[2022-01-19 09:37] LABS: YEAST 2+
== END | disposition home or self-care (01) ==
LOC: LAB 07:23
PROVIDERS: Internal Medicine; ATTEND Registered Nurse Psychiatric/Mental Health
DX: E11.65 Type 2 diabetes mellitus with hyperglycemia (principal); G62.9 Polyneuropathy, unspecified; E78.5 Hyperlipidemia, unspecified; E55.9 Vitamin D deficiency, unspecified; E04.9 Nontoxic goiter, unspecified; R25.2 Cramp and spasm; Z79.899 Other long term (current) drug therapy

== ENCOUNTER → 2022-04-09 | Outpatient (CLI) | payer OTHER | END | disposition home or self-care (01) | LOC: MAMMO 10:15 | PROVIDERS: ATTEND Physician Assistant | DX: Z12.31 Encounter for screening mammogram for malignant neoplasm of breast (principal); N63.21 Unspecified lump in the left breast, upper outer quadrant ==

== ENCOUNTER 2022-04-26 16:44 | Emergency (ER) | payer OTHER ==
[~2022-04-26] VITALS: Ht 152.4 cm; Wt 106.6 kg
[2022-04-26 17:13] LABS: BASO # 0.1 10*3/uL (0.0-0.1); BASO % 0.6 % (0.0-1.0); EOS # 0.1 10*3/uL (0.0-0.4); HEMATOCRIT 42.9 % (37.0-47.0); LYMPH # 2.6 10*3/uL (1.3-4.4); LYMPH % 25.3 % (27.0-41.0); MEAN CELL VOLUME 91.1 fl (81.0-99.0); MEAN CORPUSCULAR HGB 30.4 pg (27.0-31.0); MEAN CORPUSCULAR HGB CONC 33.3 g/dl (33.0-37.0); MEAN PLATELET VOLUME 9.6 fl (9.6-12.3); MONO # 0.5 10*3/uL (0.1-1.0); MONO % 4.5 % (3.0-9.0); NEUT # 6.9 10*3/uL (2.3-7.9); NEUT % 68.1 % (47.0-73.0); PLATELET COUNT AUTOMATED 303 10*3/uL (130-400); RED BLOOD COUNT 4.71 10*6/uL (4.10-5.10); RED CELL DISTRI WIDTH 12.4 % (0-14.5); WHITE BLOOD COUNT 10.2 10*3/uL (4.8-10.8)
[2022-04-26 17:28] LABS: ALKALINE PHOSPHATASE 77 U/L (46-116); BUN 7 mg/dl (9-23); CHLORIDE 101 mmol/L (98-107); POTASSIUM 3.8 mmol/L (3.4-5.1); SGPT/ALT 24 U/L (10-49); TOTAL PROTEIN 7.2 gm/dL (6.0-8.0)
[2022-04-26 17:44] LABS: ACT PARTIAL THROMBO TIME 28.3 SECONDS (20.0-32.1)
[2022-04-26 19:39] VITALS: BP 154/88
== END 2022-04-26 19:55 | disposition home or self-care (01) ==
LOC: ED 16:44
PROVIDERS: Emergency Medicine
DX: R07.89 Other chest pain (principal); Z91.040 Latex allergy status; Z88.5 Allergy status to narcotic agent; Z88.8 Allergy status to other drugs, medicaments and biological substances; Z90.710 Acquired absence of both cervix and uterus; Z98.890 Other specified postprocedural states; Z72.0 Tobacco use

== ENCOUNTER → 2022-09-15 | Outpatient (CLI) | payer OTHER ==
[2022-09-15 07:27] LABS: BILIRUBIN Negative (Negative); BLOOD Negative (Negative); CLARITY Clear (Clear); COLOR Yellow (Yellow); GLUCOSE 3+ (Negative); KETONE Negative (Negative); LEUKO ESTERASE Negative (Negative); NITRITE Negative (Negative); PH 5.5 (4.5-8.0); SPECIFIC GRAVITY >= 1.030 (1.001-1.030); UROBILINOGEN 0.2 E.U./dl (0.0-1.0)
[2022-09-15 08:21] LABS: VITAMIN D, 25-HYDROXY 52.5 ng/mL (30-100)
[2022-09-15 09:01] LABS: ALKALINE PHOSPHATASE 104 U/L (46-116); BUN 8 mg/dl (9-23); CHLORIDE 99 mmol/L (98-107); CHOLESTEROL 188 mg/dL (<200); POTASSIUM 4.1 mmol/L (3.4-5.1); SGPT/ALT 25 U/L (10-49); TOTAL PROTEIN 7.5 gm/dL (6.0-8.0); TRIGLYCERIDES 712 mg/dl (<150)
[2022-09-15 10:55] LABS: BACTERIA 1+; WBC 0-2 wbc/hpf (0-5); YEAST 1+
== END | disposition home or self-care (01) ==
LOC: LAB 07:08
PROVIDERS: ATTEND Internal Medicine
DX: E11.65 Type 2 diabetes mellitus with hyperglycemia (principal); E78.5 Hyperlipidemia, unspecified; E55.9 Vitamin D deficiency, unspecified; R25.2 Cramp and spasm; G62.9 Polyneuropathy, unspecified; E04.9 Nontoxic goiter, unspecified

== ENCOUNTER → 2023-08-12 | Outpatient (CLI) | payer OTHER | END | disposition home or self-care (01) | LOC: US 08-06 09:00 | PROVIDERS: ATTEND Physician Assistant | DX: E04.2 Nontoxic multinodular goiter (principal); N28.81 Hypertrophy of kidney; R94.6 Abnormal results of thyroid function studies; I10 Essential (primary) hypertension; R93.89 Abnormal findings on diagnostic imaging of other specified body structures; Z90.49 Acquired absence of other specified parts of digestive tract; Z90.710 Acquired absence of both cervix and uterus ==

== ENCOUNTER 2024-06-23 20:11 | Emergency (ER) | payer OTHER ==
[~2024-06-23] VITALS: Ht 162.5 cm; Wt 98.9 kg
[2024-06-23 20:20] VITALS: BP 136/87
[2024-06-23] MEDS ORDERED: Tdap Vaccine 0.5 ML SYR (Adult Vaccine) IM ONE (20:30)
[2024-06-23] MEDS ORDERED: AMOX-CLAV 875-1 EACH PO (20:56)
[2024-06-23] MEDS ORDERED: Amoxicillin/Clavulanate Pota 875 MG TAB PO ONE (21:00)
== END 2024-06-23 21:18 | disposition home or self-care (01) ==
LOC: ED 20:11
DX: S61.230A Puncture wound without foreign body of right index finger without damage to nail, initial encounter (principal); I10 Essential (primary) hypertension; J44.9 Chronic obstructive pulmonary disease, unspecified; F31.9 Bipolar disorder, unspecified; F17.200 Nicotine dependence, unspecified, uncomplicated; Z79.4 Long term (current) use of insulin; Z79.899 Other long term (current) drug therapy; Z88.5 Allergy status to narcotic agent; Z88.8 Allergy status to other drugs, medicaments and biological substances; Z91.040 Latex allergy status; Z90.710 Acquired absence of both cervix and uterus; Z98.51 Tubal ligation status; Z98.890 Other specified postprocedural states; W54.0XXA Bitten by dog, initial encounter; Y93.89 Activity, other specified; Y92.89 Other specified places as the place of occurrence of the external cause; Y99.8 Other external cause status; E11.9 Type 2 diabetes mellitus without complications

== ENCOUNTER → 2024-08-11 | Outpatient (CLI) | payer OTHER ==
[~2024-08-11] MED LIST changes: +AMOX-CLAV 875-1 EACH PO
[2024-08-11 10:07] LABS: ALKALINE PHOSPHATASE 91 U/L (46-116); BUN 12 mg/dl (9-23); CHLORIDE 102 mmol/L (98-107); CHOLESTEROL 226 mg/dL (<200); FREE T4 1.11 ng/dl (0.89-1.76); POTASSIUM 3.3 mmol/L (3.4-5.1); SGPT/ALT 19 U/L (5-49); TOTAL PROTEIN 7.8 gm/dL (6.0-8.0)
== END | disposition home or self-care (01) ==
LOC: LAB 09:13
PROVIDERS: Student in an Organized Health Care Education/Training Program; ATTEND Internal Medicine Endocrinology, Diabetes & Metabolism
DX: E11.9 Type 2 diabetes mellitus without complications (principal); E78.5 Hyperlipidemia, unspecified; E24.9 Cushing's syndrome, unspecified

== ENCOUNTER → 2024-08-13 | Outpatient (CLI) | payer OTHER | END | disposition home or self-care (01) | LOC: LAB 00:27 | PROVIDERS: ATTEND Internal Medicine Endocrinology, Diabetes & Metabolism | DX: E24.9 Cushing's syndrome, unspecified (principal) ==

== ENCOUNTER 2024-10-20 | Inpatient (IN) | payer OTHER ==
[~2024-10-20] VITALS: Ht 160 cm; Wt 89.6 kg
[2024-10-20 00:13] VITALS: BP 155/101
[2024-10-20] MEDS ORDERED: Ondansetron Hydrochloride 4 MG/2 ML VIAL IV ONE (00:15)
[2024-10-20] MEDS ORDERED: SODIUM CHLORIDE 0.9% 1,000 ML IV ONE ×3 (00:15→03:00)
[2024-10-20] MEDS ORDERED: INSULIN REGULAR, HUMAN 1 UNIT/0.01 ML IV ONE (00:20)
[2024-10-20 00:40] LABS: BASO # 0.1 10*3/uL (0.0-0.1); BASO % 0.3 % (0.0-1.0); EOS # 0.0 10*3/uL (0.0-0.4); EOS % 0.1 % (1.0-4.0); MEAN CELL VOLUME 88.7 fl (81.0-99.0); MEAN CORPUSCULAR HGB 29.8 pg (27.0-31.0); MEAN PLATELET VOLUME 9.7 fl (9.6-12.3); MONO # 0.8 10*3/uL (0.1-1.0); MONO % 5.0 % (3.0-9.0); NEUT # 12.1 10*3/uL (2.3-7.9); NEUT % 79.1 % (47.0-73.0); NUCLEATED RED BLOOD CELL 0.0 % (0.0-0.0); NUCLEATED RED BLOOD CELL 0.0 10*3/uL (0.0-0.0); PLATELET COUNT AUTOMATED 359 10*3/uL (130-400); RED CELL DISTRI WIDTH 12.8 % (0-14.5)
[2024-10-20 01:14] LABS: BUN 18.0 mg/dl (9-23); SGPT/ALT 25.0 U/L (5-49)
[2024-10-20] MEDS ORDERED: INSULIN REGULAR IN 0.9 % NACL 100 ML IV SCH ×2 (03:00→04:55)
[2024-10-20] MEDS ORDERED: BISACODYL 5 MG TAB PO PRN (04:45)
[2024-10-20] MEDS ORDERED: BISACODYL 10 MG SUPP R PRN (04:45)
[2024-10-20] MEDS ORDERED: POTASSIUM CHLORIDE 20 MEQ TAB PO PRN (04:55)
[2024-10-20] MEDS ORDERED: POTASSIUM CHLORIDE 20 MEQ/100 ML BAG IV PRN (04:55)
[2024-10-20 05:00] VITALS: BP 173/94
[2024-10-20] MEDS ORDERED: POTASSIUM CHLORIDE IN WATER 100 ML IV SCH ×3 (05:00→23:00)
[2024-10-20] MEDS ORDERED: Dicyclomine Hydrochloride 20 MG/10 ML OSYR PO STA (06:33)
[2024-10-20] MEDS ORDERED: MG-AL HYDROXIDE/SIMETICONE 30 ML UDC PO STA (06:33)
[2024-10-20 06:58] LABS: BUN 14 mg/dl (9-23)
[2024-10-20 07:00] LABS: BUN 14 mg/dl (9-23); SGPT/ALT 21 U/L (5-49)
[2024-10-20] MEDS ORDERED: SODIUM CHLORIDE 0.9% 1,000 ML IV SCH (07:25)
[2024-10-20] MEDS ORDERED: Metoclopramide Hydrochloride 10 MG/2 ML VIAL IV PRN (07:40)
[2024-10-20] MEDS ORDERED: Metoclopramide Hydrochloride 10 MG/2 ML VIAL IV ONE (07:40)
[2024-10-20] MEDS ORDERED: FAMOTIDINE 20 MG in SYRINGE INFUSION 8 ML IV ONE (07:45)
[2024-10-20 08:00] VITALS: BP 157/84
[2024-10-20 10:22] LABS: BASO # 0.1 10*3/uL (0.0-0.1); BASO % 0.3 % (0.0-1.0); EOS # 0.0 10*3/uL (0.0-0.4); EOS % 0.1 % (1.0-4.0); MEAN CELL VOLUME 90.0 fl (81.0-99.0); MEAN CORPUSCULAR HGB 30.0 pg (27.0-31.0); MEAN PLATELET VOLUME 9.4 fl (9.6-12.3); MONO # 0.7 10*3/uL (0.1-1.0); MONO % 4.4 % (3.0-9.0); NEUT # 13.7 10*3/uL (2.3-7.9); NEUT % 82.4 % (47.0-73.0); NUCLEATED RED BLOOD CELL 0.0 % (0.0-0.0); NUCLEATED RED BLOOD CELL 0.0 10*3/uL (0.0-0.0); PLATELET COUNT AUTOMATED 317 10*3/uL (130-400); RED CELL DISTRI WIDTH 13.1 % (0-14.5)
[2024-10-20] MEDS ORDERED: DEXTROSE 5% SALINE 0.45% 1,000 ML IV SCH (10:25)
[2024-10-20 10:44] LABS: BUN 13 mg/dl (9-23)
[2024-10-20] MEDS ORDERED: BRILINTA90 M1 PO (10:46)
[2024-10-20] MEDS ORDERED: LOSARTAN-HCTZ1 EAC1 PO (10:50)
[2024-10-20] MEDS ORDERED: HYDROCODONE-AC1 EACH PO (10:51)
[2024-10-20] MEDS ORDERED: NEURONTIN100 MG PO (10:52)
[2024-10-20] MEDS ORDERED: VARENICLINE TA0.5 MG PO (10:53)
[2024-10-20] MEDS ORDERED: AMITRIPTYLINE25 MG PO (10:54)
[2024-10-20] MEDS ORDERED: INDOMETHACIN25 M1 PO (10:58)
[2024-10-20] MEDS ORDERED: FENOFIBRATE48 M1 PO (11:00)
[2024-10-20] MEDS ORDERED: TRINTELLIX20 MG PO (11:02)
[2024-10-20] MEDS ORDERED: BREZTRI AEROS10.7 GM INH (11:04)
[2024-10-20 11:24] LABS: BILIRUBIN Negative (Negative); BLOOD Negative (Negative); CLARITY Clear (Clear); COLOR Yellow (Yellow); KETONE 4+ (Negative); LEUKO ESTERASE Negative (Negative); NITRITE Negative (Negative); PH 5.5 (4.5-8.0); SPECIFIC GRAVITY >= 1.030 (1.001-1.030); UROBILINOGEN 0.2 E.U./dl (0.0-1.0)
[2024-10-20 12:00] VITALS: BP 150/70
[2024-10-20 12:02] LABS: RBC 0-2 rbc/hpf (0-2); YEAST 1+
[2024-10-20 14:53] LABS: BUN 12 mg/dl (9-23)
[2024-10-20 16:00] VITALS: BP 136/83
[2024-10-20] MEDS ORDERED: Insulin Glargine, Recombinan 1 UNIT/0.01 ML SC ONE (17:50)
[2024-10-20 18:38] LABS: BUN 11 mg/dl (9-23)
[2024-10-20 20:00] VITALS: BP 144/73
[2024-10-20 22:30] LABS: BUN 10 mg/dl (9-23)
[2024-10-21] VITALS: BP 150/72
[2024-10-21 02:27] LABS: BUN 7 mg/dl (9-23)
[2024-10-21] MEDS ORDERED: DEXTROSE 5% SALINE 0.9% 1,000 ML IV SCH (02:55)
[2024-10-21] MEDS ORDERED: POTASSIUM CHLORIDE IN WATER 100 ML IV SCH (03:00)
[2024-10-21 04:00] VITALS: BP 134/72
[2024-10-21 06:53] LABS: BASO # 0.0 10*3/uL (0.0-0.1); BASO % 0.3 % (0.0-1.0); EOS # 0.1 10*3/uL (0.0-0.4); EOS % 0.8 % (1.0-4.0); MEAN CELL VOLUME 88.8 fl (81.0-99.0); MEAN CORPUSCULAR HGB 30.2 pg (27.0-31.0); MEAN PLATELET VOLUME 9.5 fl (9.6-12.3); MONO # 0.9 10*3/uL (0.1-1.0); MONO % 5.8 % (3.0-9.0); NEUT # 12.5 10*3/uL (2.3-7.9); NEUT % 78.6 % (47.0-73.0); NUCLEATED RED BLOOD CELL 0.0 % (0.0-0.0); NUCLEATED RED BLOOD CELL 0.0 10*3/uL (0.0-0.0); PLATELET COUNT AUTOMATED 271 10*3/uL (130-400); RED CELL DISTRI WIDTH 13.1 % (0-14.5)
[2024-10-21 06:59] LABS: BUN < 5 mg/dl (9-23)
[2024-10-21 08:00] VITALS: BP 130/83
[2024-10-21] MEDS ORDERED: IBUPROFEN 800 MG TAB PO PRN (08:30)
[2024-10-21] MEDS ORDERED: Insulin Glargine, Recombinan 1 UNIT/0.01 ML SC ONE (09:05)
[2024-10-21] MEDS ORDERED: POTASSIUM CHLORIDE 20 MEQ TAB PO ONE ×2 (09:15→10:45)
[2024-10-21] MEDS ORDERED: FORMOTEROL INH SCH (10:00)
[2024-10-21] MEDS ORDERED: ATORVASTATIN CALCIUM 10 MG TAB PO SCH (10:00)
[2024-10-21] MEDS ORDERED: TICAGRELOR 90 MG TABLET PO SCH (10:00)
[2024-10-21] MEDS ORDERED: GABAPENTIN 100 MG CAP PO SCH (10:00)
[2024-10-21] MEDS ORDERED: FENOFIBRATE 48 MG TAB PO SCH (10:00)
[2024-10-21] MEDS ORDERED: BUDESONIDE INH SCH (10:00)
[2024-10-21] MEDS ORDERED: GLYCOPYR INH SCH (10:00)
[2024-10-21] MEDS ORDERED: hydroCHLOROthiazide 25 MG TAB PO SCH (10:00)
[2024-10-21 10:36] LABS: BUN < 5 mg/dl (9-23)
[2024-10-21] MEDS ORDERED: Albuterol Sulf/Ipratropium 3 ML VIAL NEB SCH (10:40)
[2024-10-21] MEDS ORDERED: DEXTROSE 50% 25 GM/50 ML VIAL IV PRN (11:00)
[2024-10-21] MEDS ORDERED: SODIUM PHOSPHATE 30 MMOL in SODIUM CHLORIDE 0.9% 500 ML IV ONE (11:15)
[2024-10-21] MEDS ORDERED: INSULIN LISPRO 1 UNIT/0.01 ML SQ SCH (11:30)
[2024-10-21] MEDS ORDERED: Phosphorus/Potassium 1.45 GM PACKET PO SCH (12:00)
[2024-10-21 14:27] LABS: BUN < 5 mg/dl (9-23)
[2024-10-21] MEDS ORDERED: Oscal,Oyster S500 MG PO (15:07)
[2024-10-21] MEDS ORDERED: TRESIBA FL100 UNIT/1 SQ (15:23)
[2024-10-21 16:00] VITALS: BP 139/77
[2024-10-21] MEDS ORDERED: Cyclobenzaprine Hydrochlorid 10 MG TAB PO SCH (16:00)
[2024-10-21] MEDS ORDERED: Acetaminophen/Hydrocodone HP 10/325 PO SCH (18:00)
[2024-10-21] MEDS ORDERED: CALCIUM (OSCAL) 500MG PO SCH (18:00)
[2024-10-21 18:38] LABS: BUN < 5 mg/dl (9-23)
[2024-10-21] MEDS ORDERED: FAMOTIDINE 20 MG TAB PO SCH (22:00)
[2024-10-21] MEDS ORDERED: LORATADINE 10 MG TAB PO SCH (22:00)
[2024-10-21] MEDS ORDERED: METOPROLOL SUCCINATE XR 50 MG TAB PO SCH (22:00)
[2024-10-21] MEDS ORDERED: VORTIOXETINE HYDROBROMIDE 20 MG TAB PO SCH (22:00)
[2024-10-21] MEDS ORDERED: Amitriptyline Hydrochloride 25 MG TAB PO SCH (22:00)
[2024-10-21] MEDS ORDERED: LURASIDONE HYDROCHLORIDE PO SCH (22:00)
== END 2024-10-21 19:18 | disposition home or self-care (01) | DRG 638 ==
LOC: ED → ICCU 04:13 → EDHOLD 04:13 → ICCU 04:29
PROVIDERS: Internal Medicine; Student in an Organized Health Care Education/Training Program; ADMIT Internal Medicine; ATTEND Internal Medicine
DX: E11.10 Type 2 diabetes mellitus with ketoacidosis without coma (principal); E87.1 Hypo-osmolality and hyponatremia; N17.9 Acute kidney failure, unspecified; F17.210 Nicotine dependence, cigarettes, uncomplicated; D72.829 Elevated white blood cell count, unspecified; N18.31 Chronic kidney disease, stage 3a; J44.9 Chronic obstructive pulmonary disease, unspecified; I25.10 Atherosclerotic heart disease of native coronary artery without angina pectoris; I12.9 Hypertensive chronic kidney disease with stage 1 through stage 4 chronic kidney disease, or unspecified chronic kidney disease; E11.22 Type 2 diabetes mellitus with diabetic chronic kidney disease; K21.9 Gastro-esophageal reflux disease without esophagitis; Z66 Do not resuscitate; F31.9 Bipolar disorder, unspecified; B00.9 Herpesviral infection, unspecified; R00.0 Tachycardia, unspecified; E87.8 Other disorders of electrolyte and fluid balance, not elsewhere classified; E83.39 Other disorders of phosphorus metabolism; E83.51 Hypocalcemia; Z91.040 Latex allergy status; Z88.8 Allergy status to other drugs, medicaments and biological substances; Z91.09 Other allergy status, other than to drugs and biological substances; Z79.899 Other long term (current) drug therapy; Z79.2 Long term (current) use of antibiotics; Z95.5 Presence of coronary angioplasty implant and graft; Z90.710 Acquired absence of both cervix and uterus; Z79.01 Long term (current) use of anticoagulants; Z82.49 Family history of ischemic heart disease and other diseases of the circulatory system; Z82.5 Family history of asthma and other chronic lower respiratory diseases

== ENCOUNTER → 2024-10-27 | Outpatient (CLI) | payer OTHER ==
[~2024-10-27] MED LIST changes: +AMITRIPTYLINE25 MG PO; +BREZTRI AEROS10.7 GM INH; +BRILINTA90 M1 PO; +FENOFIBRATE48 M1 PO; +HYDROCODONE-AC1 EACH PO; +INDOMETHACIN25 M1 PO; +LOSARTAN-HCTZ1 EAC1 PO; +NEURONTIN100 MG PO; +Oscal,Oyster S500 MG PO; +TRINTELLIX20 MG PO; +VARENICLINE TA0.5 MG PO
[2024-10-27 08:04] LABS: BUN 11 mg/dl (9-23)
== END | disposition home or self-care (01) ==
LOC: LAB 07:27
PROVIDERS: ATTEND Internal Medicine
DX: E11.10 Type 2 diabetes mellitus with ketoacidosis without coma (principal)

== ENCOUNTER 2025-01-17 15:19 | Emergency (ER) | payer OTHER ==
[~2025-01-17] VITALS: Ht 162.5 cm; Wt 97.1 kg
[2025-01-17] MEDS ORDERED: SODIUM CHLORIDE 0.9% 1,000 ML IV ONE (15:30)
[2025-01-17] MEDS ORDERED: predniSONE 10 MG TAB PO ONE (15:30)
[2025-01-17] MEDS ORDERED: FAMOTIDINE IV ONE (15:30)
[2025-01-17] MEDS ORDERED: INFUSION IV ONE (15:30)
[2025-01-17] MEDS ORDERED: Albuterol Sulf/Ipratropium 3 ML VIAL NEB ONE (15:35)
[2025-01-17 15:46] LABS: MEAN CELL VOLUME 89.9 fl (81.0-99.0); MEAN CORPUSCULAR HGB 29.7 pg (27.0-31.0); MEAN PLATELET VOLUME 9.2 fl (9.6-12.3); NUCLEATED RED BLOOD CELL 0.0 % (0.0-0.0); NUCLEATED RED BLOOD CELL 0.0 10*3/uL (0.0-0.0); PLATELET COUNT AUTOMATED 418 10*3/uL (130-400); RED CELL DISTRI WIDTH 12.4 % (0-14.5)
[2025-01-17 15:53] LABS: MANUAL DIFF REFLEX YES
[2025-01-17 16:04] LABS: BUN 12 mg/dl (9-23)
[2025-01-17 16:22] LABS: BASOPHILS 1 % (0-1)
[2025-01-17 16:23] LABS: PLATELET SUFFICIENCY HIGH (NORMAL)
[2025-01-17] MEDS ORDERED: FAMOTIDINE 20 MG/2 ML VIAL ONE (16:31)
[2025-01-17] MEDS ORDERED: diphenhydrAMINE hydrochloride 50 MG/ML VIAL IV ONE (16:40)
[2025-01-17] MEDS ORDERED: AZITHROMYCIN 250 MG TAB PO ONE (17:05)
[2025-01-17 17:20] VITALS: BP 130/82
[2025-01-18] MEDS ORDERED: ZITHROMAX250 MG PO (14:21)
== END 2025-01-17 17:49 | disposition home or self-care (01) ==
LOC: ED 15:19
PROVIDERS: Nurse Practitioner Family
DX: T78.40XA Allergy, unspecified, initial encounter (principal); J44.1 Chronic obstructive pulmonary disease with (acute) exacerbation; J98.01 Acute bronchospasm; E11.9 Type 2 diabetes mellitus without complications; I10 Essential (primary) hypertension; F31.9 Bipolar disorder, unspecified; Z98.51 Tubal ligation status; Z88.1 Allergy status to other antibiotic agents; Z88.8 Allergy status to other drugs, medicaments and biological substances; Z91.040 Latex allergy status; Z90.710 Acquired absence of both cervix and uterus